=== PATIENT | female | born 1950 | race Two or more races ===

== ENCOUNTER 2020-12-13 16:16 | Inpatient (IN) | payer OTHER ==
[~2020-12-13] VITALS: Ht 157.5 cm; Wt 60.8 kg
[2020-12-13 16:57] LABS: Basophils # (auto) 0 10 ^3/uL (0-0.2); Basophils % (auto) 0.6 % (0.0-2.0); Eosinophils # (auto) 0 10 ^3/uL (0-0.8); Eosinophils % (auto) 0.4 % (0.0-7.0); Hematocrit 43.8 % (36.0-46.0); Hemoglobin 14.7 g/dL (12.2-16.2); Lymphocytes # (auto) 1.2 10 ^3/uL (0.4-5.4); Lymphocytes % (auto) 15.8 % (10.0-50.0); Mean Corpuscular Hgb Conc. 33.6 g/dL (32.0-36.0); Mean Corpuscular Volume 86.4 fL (80.0-100.0); Monocytes # (auto) 0.7 10 ^3/uL (0-1.3); Monocytes % (auto) 9.9 % (0.0-12.0); Neutrophils # (auto) 5.4 10 ^3/uL (1.6-8.6); Neutrophils % (auto) 73.3 % (37.0-80.0); Nucleated Red Blood Cells % 0.2 %; Red Blood Cells 5.07 10^6/uL (4.0-5.20); Red Cell Distribution Width 17.3 % (11.8-14.3); White Blood Cell 7.4 10^3/uL (4.4-10.8)
[2020-12-13] MEDS ORDERED: dilTIAZem 25 MG/5 ML VIAL IV ONE ×2 (17:15→19:45)
[2020-12-13 17:16] LABS: Albumin 2.9 g/dL (3.4-5.0); Calcium 8.4 mg/dL (8.5-10.1); Magnesium 1.9 mg/dL (1.6-2.6); Potassium 4.2 mmol/L (3.5-5.1)
[2020-12-13 17:21] LABS: BUN/Creatinine Ratio 23.5; Bilirubin, Total 0.5 mg/dL (0.2-1.0); Total Protein 7.5 g/dL (6.4-8.2)
[2020-12-13 17:48] LABS: Urine Bacteria FEW /hpf (None Seen); Urine Blood Negative /uL (Negative); Urine Hyaline Cast FEW /lpf (0 - 2); Urine Mucus FEW (None Seen); Urine WBC 14 /hpf (0 - 5)
[2020-12-13] MEDS ORDERED: NITROGLYCERIN 0.4 MG SL TAB SL PRN (22:00)
[2020-12-13] MEDS ORDERED: MORPHINE SULF INJ 2 MG/ML SYRINGE 1ML IV PRN (22:00)
[2020-12-13] MEDS ORDERED: ACETAMINOPHEN 325 MG TAB PO PRN (22:00)
[2020-12-13] MEDS ORDERED: DOCUSATE SOD 100 MG CAP PO PRN (22:00)
[2020-12-13] MEDS ORDERED: cloNIDine HCL 0.1 MG TAB PO PRN (22:00)
[2020-12-13] MEDS ORDERED: HYDROcodone-ACET 5/325MG TAB PO PRN (22:00)
[2020-12-13] MEDS ORDERED: ONDANSETRON HCL 4 MG/2 ML VIAL IV PRN (22:00)
[2020-12-13] MEDS ORDERED: cefTRIAXone 1GM/50ML D5W 50 ML IV ONE (22:30)
[2020-12-13] MEDS: SODIUM CHLOR 0.9% PF (SALINE LOCK) 10ML VIAL/SYR IV SCH (22:48)
[2020-12-13] MEDS: CARVEDILOL 12.5 MG TAB PO SCH (22:49)
[2020-12-13] MEDS: AMIODARONE HCL 200 MG TAB PO SCH (22:49)
[2020-12-13] MEDS: ASCORBIC ACID 500 MG TAB PO SCH (22:50)
[2020-12-13] MEDS: APIXABAN 5 MG TAB PO SCH (22:50)
[2020-12-13] MEDS: ATORVASTATIN 20 MG TAB PO SCH (22:50)
[2020-12-14] VITALS (9 sets, daily range): BP systolic 99–144; BP diastolic 49–95
[2020-12-14] MEDS ORDERED: APIX5TAB PO (00:54)
[2020-12-14] MEDS ORDERED: FURO1TAB31 PO (00:54)
[2020-12-14] MEDS ORDERED: AMIO200T33 PO (00:54)
[2020-12-14] MEDS ORDERED: ATOR20TA50 PO (00:54)
[2020-12-14] MEDS ORDERED: METO-158 PO (00:54)
[2020-12-14] MEDS: SODIUM CHLOR 0.9% PF (SALINE LOCK) 10ML VIAL/SYR IV SCH ×3 (05:46→22:21)
[2020-12-14 08:26] LABS: Basophils # (auto) 0 10 ^3/uL (0-0.2); Basophils % (auto) 0.7 % (0.0-2.0); Eosinophils # (auto) 0 10 ^3/uL (0-0.8); Eosinophils % (auto) 0.5 % (0.0-7.0); Hemoglobin 13.6 g/dL (12.2-16.2); Mean Corpuscular Hemoglobin 28.6 pg (28.0-32.0); Mean Corpuscular Hgb Conc. 33.3 g/dL (32.0-36.0); Mean Corpuscular Volume 85.9 fL (80.0-100.0); Monocytes # (auto) 0.5 10 ^3/uL (0-1.3); Monocytes % (auto) 8.1 % (0.0-12.0); Neutrophils # (auto) 4.9 10 ^3/uL (1.6-8.6); Neutrophils % (auto) 74.7 % (37.0-80.0); Nucleated Red Blood Cells % 0.1 %; Red Blood Cells 4.77 10^6/uL (4.0-5.20); Red Cell Distribution Width 17.1 % (11.8-14.3); White Blood Cell 6.5 10^3/uL (4.4-10.8)
[2020-12-14 08:44] LABS: Cholesterol 98 mg/dL (< 200); Triglycerides 78 mg/dL (< 150)
[2020-12-14 08:47] LABS: HDL Cholesterol 24 mg/dL (40-59); LDL Cholesterol 64 mg/dL (< 100)
[2020-12-14] MEDS: cefTRIAXone 1GM/50ML D5W 50 ML IV SCH (10:06)
[2020-12-14] MEDS: FUROSEMIDE 40 MG/4 ML VIAL IV SCH (10:06)
[2020-12-14] MEDS: MULTIPLE VITAMIN TAB PO SCH (10:08)
[2020-12-14] MEDS: ASCORBIC ACID 500 MG TAB PO SCH ×2 (10:08→22:24)
[2020-12-14] MEDS: CARVEDILOL 12.5 MG TAB PO SCH ×2 (10:09→22:23)
[2020-12-14] MEDS: ZINC SULFATE 220mg CAP or TAB PO SCH (10:09)
[2020-12-14] MEDS: AMIODARONE HCL 200 MG TAB PO SCH ×2 (10:09→22:23)
[2020-12-14] MEDS: APIXABAN 5 MG TAB PO SCH ×2 (10:09→22:23)
[2020-12-14 12:01] LABS: Potassium 4.6 mmol/L (3.5-5.1)
[2020-12-14 12:19] LABS: Albumin 2.8 g/dL (3.4-5.0); BUN/Creatinine Ratio 23.6; Calcium 8.6 mg/dL (8.5-10.1)
[2020-12-14] MEDS ORDERED: MAGNESIUM SULFATE 1GM/100ML 100 ML IV ONE (12:30)
[2020-12-14 12:50] LABS: Bilirubin, Total 0.5 mg/dL (0.2-1.0); Total Protein 6.9 g/dL (6.4-8.2)
[2020-12-14] MEDS: ATORVASTATIN 20 MG TAB PO SCH (22:24)
[2020-12-15 05:00] VITALS: BP 111/63
[2020-12-15] MEDS: SODIUM CHLOR 0.9% PF (SALINE LOCK) 10ML VIAL/SYR IV SCH ×3 (05:46→22:59)
[2020-12-15 09:00] VITALS: BP 109/91
[2020-12-15] MEDS: AMIODARONE HCL 200 MG TAB PO SCH ×2 (09:24→23:00)
[2020-12-15] MEDS: APIXABAN 5 MG TAB PO SCH ×2 (09:24→23:01)
[2020-12-15] MEDS: ASCORBIC ACID 500 MG TAB PO SCH ×2 (09:24→23:02)
[2020-12-15] MEDS: CARVEDILOL 12.5 MG TAB PO SCH ×2 (09:25→23:01)
[2020-12-15] MEDS: ZINC SULFATE 220mg CAP or TAB PO SCH (09:25)
[2020-12-15] MEDS: FUROSEMIDE 40 MG/4 ML VIAL IV SCH (09:25)
[2020-12-15] MEDS: MULTIPLE VITAMIN TAB PO SCH (09:25)
[2020-12-15] MEDS: cefTRIAXone 1GM/50ML D5W 50 ML IV SCH (09:26)
[2020-12-15] MEDS ORDERED: TEMAZEPAM 15 MG CAP PO PRN (12:15)
[2020-12-15 13:00] VITALS: BP 124/65
[2020-12-15 16:49] VITALS: BP 124/89
[2020-12-15 22:00] VITALS: BP 118/83
[2020-12-15] MEDS: ATORVASTATIN 20 MG TAB PO SCH (23:01)
[2020-12-16 05:43] VITALS: BP 119/64
[2020-12-16] MEDS: SODIUM CHLOR 0.9% PF (SALINE LOCK) 10ML VIAL/SYR IV SCH ×3 (05:51→21:42)
[2020-12-16 07:09] LABS: Basophils # (auto) 0.1 10 ^3/uL (0-0.2); Basophils % (auto) 0.8 % (0.0-2.0); Eosinophils # (auto) 0.1 10 ^3/uL (0-0.8); Eosinophils % (auto) 0.8 % (0.0-7.0); Hematocrit 38.4 % (36.0-46.0); Hemoglobin 12.8 g/dL (12.2-16.2); Lymphocytes # (auto) 1.1 10 ^3/uL (0.4-5.4); Lymphocytes % (auto) 16.7 % (10.0-50.0); Mean Corpuscular Hemoglobin 28.9 pg (28.0-32.0); Mean Corpuscular Hgb Conc. 33.2 g/dL (32.0-36.0); Monocytes # (auto) 0.6 10 ^3/uL (0-1.3); Monocytes % (auto) 9.3 % (0.0-12.0); Neutrophils # (auto) 4.7 10 ^3/uL (1.6-8.6); Neutrophils % (auto) 72.4 % (37.0-80.0); Nucleated Red Blood Cells % 0.2 %; Red Blood Cells 4.41 10^6/uL (4.0-5.20); Red Cell Distribution Width 17.1 % (11.8-14.3); White Blood Cell 6.5 10^3/uL (4.4-10.8)
[2020-12-16 07:31] LABS: BUN/Creatinine Ratio 23.2; Calcium 7.8 mg/dL (8.5-10.1); Magnesium 2.1 mg/dL (1.6-2.6); Potassium 3.5 mmol/L (3.5-5.1)
[2020-12-16 08:00] VITALS: BP 118/83
[2020-12-16 09:00] VITALS: BP 104/65
[2020-12-16] MEDS: cefTRIAXone 1GM/50ML D5W 50 ML IV SCH (09:58)
[2020-12-16] MEDS: FUROSEMIDE 40 MG/4 ML VIAL IV SCH (09:58)
[2020-12-16] MEDS: AMIODARONE HCL 200 MG TAB PO SCH ×2 (09:59→21:46)
[2020-12-16] MEDS: ZINC SULFATE 220mg CAP or TAB PO SCH (09:59)
[2020-12-16] MEDS: CARVEDILOL 12.5 MG TAB PO SCH ×2 (10:00→21:46)
[2020-12-16] MEDS: APIXABAN 5 MG TAB PO SCH ×2 (10:01→21:45)
[2020-12-16] MEDS: ASCORBIC ACID 500 MG TAB PO SCH ×2 (10:01→21:45)
[2020-12-16] MEDS: MULTIPLE VITAMIN TAB PO SCH (10:01)
[2020-12-16 13:00] VITALS: BP 96/56
[2020-12-16 17:00] VITALS: BP 122/78
[2020-12-16] MEDS: ATORVASTATIN 20 MG TAB PO SCH (21:45)
[2020-12-16 22:00] VITALS: BP 130/93
[2020-12-17 05:00] VITALS: BP 105/65
[2020-12-17] MEDS: SODIUM CHLOR 0.9% PF (SALINE LOCK) 10ML VIAL/SYR IV SCH ×3 (05:37→22:38)
[2020-12-17 08:47] VITALS: BP 129/65
[2020-12-17] MEDS: cefTRIAXone 1GM/50ML D5W 50 ML IV SCH (09:13)
[2020-12-17] MEDS: ZINC SULFATE 220mg CAP or TAB PO SCH (09:13)
[2020-12-17] MEDS: FUROSEMIDE 40 MG/4 ML VIAL IV SCH (09:13)
[2020-12-17] MEDS: AMIODARONE HCL 200 MG TAB PO SCH ×2 (09:14→22:38)
[2020-12-17] MEDS: CARVEDILOL 12.5 MG TAB PO SCH ×2 (09:14→22:38)
[2020-12-17] MEDS: MULTIPLE VITAMIN TAB PO SCH (09:15)
[2020-12-17] MEDS: ASCORBIC ACID 500 MG TAB PO SCH ×2 (09:15→22:39)
[2020-12-17] MEDS: APIXABAN 5 MG TAB PO SCH ×2 (09:15→22:38)
[2020-12-17 13:00] VITALS: BP 124/67
[2020-12-17 17:13] VITALS: BP 115/63
[2020-12-17 20:00] VITALS: BP 109/83
[2020-12-17 22:00] VITALS: BP 109/83
[2020-12-17] MEDS: ATORVASTATIN 20 MG TAB PO SCH (22:39)
[2020-12-18 05:00] VITALS: BP 135/89
[2020-12-18] MEDS: SODIUM CHLOR 0.9% PF (SALINE LOCK) 10ML VIAL/SYR IV SCH (05:48)
[2020-12-18 06:14] LABS: BUN/Creatinine Ratio 23.3; Calcium 8.1 mg/dL (8.5-10.1)
[2020-12-18 09:00] VITALS: BP 113/77
[2020-12-18] MEDS ORDERED: POTASSIUM CHL 20 Meq TABLET PO ONE (09:15)
[2020-12-18] MEDS: cefTRIAXone 1GM/50ML D5W 50 ML IV SCH (09:43)
[2020-12-18] MEDS: FUROSEMIDE 40 MG/4 ML VIAL IV SCH (09:43)
[2020-12-18] MEDS: AMIODARONE HCL 200 MG TAB PO SCH (09:44)
[2020-12-18] MEDS: CARVEDILOL 12.5 MG TAB PO SCH (09:44)
[2020-12-18] MEDS: APIXABAN 5 MG TAB PO SCH (09:44)
[2020-12-18] MEDS: MULTIPLE VITAMIN TAB PO SCH (09:44)
[2020-12-18] MEDS: ZINC SULFATE 220mg CAP or TAB PO SCH (09:44)
[2020-12-18] MEDS: ASCORBIC ACID 500 MG TAB PO SCH (09:44)
[2020-12-18 12:51] VITALS: BP 104/61
[2020-12-18 12:55] VITALS: BP 104/61
== END 2020-12-18 16:00 | disposition home health service (06) | DRG 280 ==
LOC: ER 16:16 → EDBD 16:16 → TELE 21:52 → TELE-WESTW 23:13
PROVIDERS: ADMIT Nurse Practitioner Family; ATTEND Internal Medicine Geriatric Medicine
DX: I13.0 Hypertensive heart and chronic kidney disease with heart failure and stage 1 through stage 4 chronic kidney disease, or unspecified chronic kidney disease (principal); I21.4 Non-ST elevation (NSTEMI) myocardial infarction; I50.43 Acute on chronic combined systolic (congestive) and diastolic (congestive) heart failure; N39.0 Urinary tract infection, site not specified; I48.91 Unspecified atrial fibrillation; F15.10 Other stimulant abuse, uncomplicated; Z20.822 Contact with and (suspected) exposure to COVID-19; N18.9 Chronic kidney disease, unspecified; F17.210 Nicotine dependence, cigarettes, uncomplicated; J44.9 Chronic obstructive pulmonary disease, unspecified; Z80.8 Family history of malignant neoplasm of other organs or systems; Z82.49 Family history of ischemic heart disease and other diseases of the circulatory system; Z90.49 Acquired absence of other specified parts of digestive tract
CPT/HCPCS: 36415; 71045; 80048; 80053; 80061; 81001; 83036; 83735; 83880; 84443; 84484; 85025; 85379; 87081; 87086; 87426; 93005; 93306; 96365; 96375; 96376; 97116; 97163; 99291; G0378; J0696

== ENCOUNTER 2021-01-08 10:29 | Inpatient (IN) | payer OTHER ==
[~2021-01-08] VITALS: Ht 157.5 cm; Wt 60.7 kg
[~2021-01-08 10:29] MED LIST: AMIO200T33 PO; APIX5TAB PO; ATOR20TA50 PO; FURO1TAB31 PO; METO-158 PO
[2021-01-08] MEDS ORDERED: FUROSEMIDE 40 MG/4 ML VIAL IV ONE (10:45)
[2021-01-08 13:06] LABS: Basophils # (auto) 0.1 10 ^3/uL (0-0.2); Basophils % (auto) 1.1 % (0.0-2.0); Eosinophils # (auto) 0 10 ^3/uL (0-0.8); Eosinophils % (auto) 0.4 % (0.0-7.0); Hematocrit 42.3 % (36.0-46.0); Hemoglobin 14.3 g/dL (12.2-16.2); Lymphocytes # (auto) 1.4 10 ^3/uL (0.4-5.4); Lymphocytes % (auto) 15.3 % (10.0-50.0); Mean Corpuscular Hemoglobin 28.4 pg (28.0-32.0); Mean Corpuscular Hgb Conc. 33.7 g/dL (32.0-36.0); Mean Corpuscular Volume 84.2 fL (80.0-100.0); Monocytes # (auto) 0.8 10 ^3/uL (0-1.3); Monocytes % (auto) 9.1 % (0.0-12.0); Neutrophils # (auto) 6.8 10 ^3/uL (1.6-8.6); Neutrophils % (auto) 74.1 % (37.0-80.0); Red Blood Cells 5.03 10^6/uL (4.0-5.20); Red Cell Distribution Width 16.7 % (11.8-14.3); White Blood Cell 9.1 10^3/uL (4.4-10.8)
[2021-01-08 13:31] LABS: Albumin 3.2 g/dL (3.4-5.0); Calcium 9.1 mg/dL (8.5-10.1); Potassium 4.5 mmol/L (3.5-5.1)
[2021-01-08 13:37] LABS: BUN/Creatinine Ratio 26.7; Bilirubin, Total 0.5 mg/dL (0.2-1.0); Total Protein 8.3 g/dL (6.4-8.2)
[2021-01-08] MEDS ORDERED: ACETAMINOPHEN 500 MG TAB PO PRN (15:00)
[2021-01-08] MEDS ORDERED: NITROGLYCERIN 0.4 MG SL TAB SL PRN (15:00)
[2021-01-08] MEDS ORDERED: HYDROcodone-ACET 5/325MG TAB PO PRN (15:00)
[2021-01-08] MEDS ORDERED: ONDANSETRON HCL 4 MG/2 ML VIAL IV PRN (15:00)
[2021-01-08] MEDS ORDERED: MORPHINE SULFATE INJECTION 2 MG/ML SYRG IV PRN ×2 (15:00)
[2021-01-08 20:00] VITALS: BP 158/101
[2021-01-08] MEDS: METOPROLOL TARTRATE 50 MG TAB PO SCH (22:22)
[2021-01-08] MEDS: APIXABAN 5 MG TAB PO SCH (22:22)
[2021-01-08] MEDS: AMIODARONE HCL 200 MG TAB PO SCH (22:22)
[2021-01-09 05:20] VITALS: BP 133/81
[2021-01-09 06:35] LABS: Basophils # (auto) 0.1 10 ^3/uL (0-0.2); Basophils % (auto) 1.1 % (0.0-2.0); Eosinophils # (auto) 0.1 10 ^3/uL (0-0.8); Eosinophils % (auto) 1.8 % (0.0-7.0); Hematocrit 40.3 % (36.0-46.0); Hemoglobin 13.1 g/dL (12.2-16.2); Lymphocytes # (auto) 1.5 10 ^3/uL (0.4-5.4); Lymphocytes % (auto) 19.7 % (10.0-50.0); Mean Corpuscular Hemoglobin 27.5 pg (28.0-32.0); Mean Corpuscular Hgb Conc. 32.5 g/dL (32.0-36.0); Mean Corpuscular Volume 84.7 fL (80.0-100.0); Monocytes # (auto) 0.8 10 ^3/uL (0-1.3); Monocytes % (auto) 10.5 % (0.0-12.0); Neutrophils % (auto) 66.9 % (37.0-80.0); Nucleated Red Blood Cells % 0.1 %; Red Blood Cells 4.76 10^6/uL (4.0-5.20); Red Cell Distribution Width 17.3 % (11.8-14.3); White Blood Cell 7.5 10^3/uL (4.4-10.8)
[2021-01-09 06:59] LABS: Calcium 8.7 mg/dL (8.5-10.1); Potassium 3.9 mmol/L (3.5-5.1)
[2021-01-09 07:05] LABS: Albumin 2.9 g/dL (3.4-5.0); Bilirubin, Total 0.6 mg/dL (0.2-1.0); Total Protein 7.7 g/dL (6.4-8.2)
[2021-01-09 09:00] VITALS: BP 144/77
[2021-01-09] MEDS ORDERED: FUROSEMIDE 20 MG/2 ML VIAL IV SCH (10:00)
[2021-01-09] MEDS: METOPROLOL TARTRATE 50 MG TAB PO SCH ×2 (10:45→21:23)
[2021-01-09] MEDS: APIXABAN 5 MG TAB PO SCH ×2 (10:45→21:24)
[2021-01-09] MEDS: FUROSEMIDE 20 MG/2 ML VIAL IV SCH ×2 (10:45→17:35)
[2021-01-09] MEDS: AMIODARONE HCL 200 MG TAB PO SCH ×2 (10:45→21:24)
[2021-01-09] MEDS: ATORVASTATIN 20 MG TAB PO SCH (10:45)
[2021-01-09 13:00] VITALS: BP 151/121
[2021-01-09 17:00] VITALS: BP 148/76
[2021-01-09 22:00] VITALS: BP 127/77
[2021-01-10 05:00] VITALS: BP 153/88
[2021-01-10 05:46] LABS: Basophils # (auto) 0.1 10 ^3/uL (0-0.2); Basophils % (auto) 1.2 % (0.0-2.0); Eosinophils # (auto) 0.1 10 ^3/uL (0-0.8); Eosinophils % (auto) 1.7 % (0.0-7.0); Hematocrit 40.2 % (36.0-46.0); Hemoglobin 13.2 g/dL (12.2-16.2); Lymphocytes # (auto) 1.6 10 ^3/uL (0.4-5.4); Lymphocytes % (auto) 23.3 % (10.0-50.0); Mean Corpuscular Hemoglobin 27.9 pg (28.0-32.0); Mean Corpuscular Hgb Conc. 32.9 g/dL (32.0-36.0); Monocytes # (auto) 0.8 10 ^3/uL (0-1.3); Monocytes % (auto) 12.4 % (0.0-12.0); Neutrophils # (auto) 4.1 10 ^3/uL (1.6-8.6); Neutrophils % (auto) 61.4 % (37.0-80.0); Nucleated Red Blood Cells % 0.1 %; Red Blood Cells 4.73 10^6/uL (4.0-5.20); Red Cell Distribution Width 16.9 % (11.8-14.3); White Blood Cell 6.7 10^3/uL (4.4-10.8)
[2021-01-10 05:55] LABS: BUN/Creatinine Ratio 26.5; Potassium 3.8 mmol/L (3.5-5.1)
[2021-01-10 05:56] LABS: Calcium 9.2 mg/dL (8.5-10.1); Magnesium 2.3 mg/dL (1.6-2.6)
[2021-01-10] MEDS: FUROSEMIDE 20 MG/2 ML VIAL IV SCH (07:36)
[2021-01-10 09:00] VITALS: BP 144/99
[2021-01-10] MEDS: APIXABAN 5 MG TAB PO SCH (09:04)
[2021-01-10] MEDS: AMIODARONE HCL 200 MG TAB PO SCH (09:04)
[2021-01-10] MEDS: METOPROLOL TARTRATE 50 MG TAB PO SCH (09:05)
[2021-01-10] MEDS: ATORVASTATIN 20 MG TAB PO SCH (09:05)
[2021-01-10 10:55] LABS: Urine Bacteria FEW /hpf (None Seen); Urine Blood Negative /uL (Negative); Urine Hyaline Cast FEW /lpf (0 - 2); Urine Specific Gravity 1.007 (1.001-1.035); Urine WBC <1 /hpf (0 - 5)
[2021-01-10 11:12] LABS: Alcohol, Urine < 3.0 mg/dL (0-10); Amphetamine Screen, Urine NEGATIVE (NEGATIVE); Barbiturate Scree,Urine NEGATIVE (NEGATIVE); Benzodiazephine Screen, Urine NEGATIVE (NEGATIVE); Cannabinoid Screen, Urine NEGATIVE (NEGATIVE); Cocaine Screen, Urine NEGATIVE (NEGATIVE); Opiate Scree,Urine NEGATIVE (NEGATIVE); Phencyclidine Screen, Urine NEGATIVE (NEGATIVE)
[2021-01-10 11:53] VITALS: BP 144/99
[2021-01-10 12:50] VITALS: BP 156/113
== END 2021-01-10 14:01 | disposition home health service (06) | DRG 291 ==
LOC: EDBD → ER 10:29 → TELE 14:54 → TELE-WESTW 21:05
PROVIDERS: ADMIT Nurse Practitioner Acute Care; ATTEND Internal Medicine Geriatric Medicine
DX: I13.0 Hypertensive heart and chronic kidney disease with heart failure and stage 1 through stage 4 chronic kidney disease, or unspecified chronic kidney disease (principal); I50.43 Acute on chronic combined systolic (congestive) and diastolic (congestive) heart failure; D68.59 Other primary thrombophilia; I48.20 Chronic atrial fibrillation, unspecified; E78.5 Hyperlipidemia, unspecified; F17.210 Nicotine dependence, cigarettes, uncomplicated; N18.9 Chronic kidney disease, unspecified; Z20.822 Contact with and (suspected) exposure to COVID-19; Z79.01 Long term (current) use of anticoagulants; Z79.899 Other long term (current) drug therapy; Z80.8 Family history of malignant neoplasm of other organs or systems; Z82.49 Family history of ischemic heart disease and other diseases of the circulatory system; Z91.14 Patient's other noncompliance with medication regimen; Z90.49 Acquired absence of other specified parts of digestive tract
CPT/HCPCS: 36415; 71045; 80048; 80053; 80307; 81001; 83735; 83880; 84484; 85025; 87081; 87426; 93005; 96374; G0378

== ENCOUNTER 2021-02-28 20:26 | Inpatient (IN) | payer OTHER ==
[~2021-02-28] VITALS: Ht 144.8 cm; Wt 61.4 kg
[2021-02-28 21:33] LABS: Basophils # (auto) 0.2 10 ^3/uL (0-0.2); Basophils % (auto) 2.2 % (0.0-2.0); Eosinophils # (auto) 0.1 10 ^3/uL (0-0.8); Eosinophils % (auto) 1.2 % (0.0-7.0); Hematocrit 46.4 % (36.0-46.0); Hemoglobin 15.2 g/dL (12.2-16.2); Lymphocytes # (auto) 0.8 10 ^3/uL (0.4-5.4); Mean Corpuscular Hgb Conc. 32.7 g/dL (32.0-36.0); Mean Corpuscular Volume 85.8 fL (80.0-100.0); Monocytes # (auto) 0.5 10 ^3/uL (0-1.3); Monocytes % (auto) 6.1 % (0.0-12.0); Neutrophils # (auto) 6.4 10 ^3/uL (1.6-8.6); Neutrophils % (auto) 80.5 % (37.0-80.0); Nucleated Red Blood Cells % 0.1 %; Red Blood Cells 5.41 10^6/uL (4.0-5.20); Red Cell Distribution Width 19.8 % (11.8-14.3); White Blood Cell 7.9 10^3/uL (4.4-10.8)
[2021-02-28 21:51] LABS: Lactic Acid w/Reflex 3.9 mmol/L (0.4-2.0)
[2021-02-28 21:55] LABS: Albumin 3.4 g/dL (3.4-5.0); BUN/Creatinine Ratio 21.6; Calcium 9.2 mg/dL (8.5-10.1); Magnesium 2.3 mg/dL (1.6-2.6); Potassium 4.8 mmol/L (3.5-5.1)
[2021-02-28 22:02] LABS: Bilirubin, Total 1.8 mg/dL (0.2-1.0); Total Protein 8.6 g/dL (6.4-8.2)
[2021-02-28] MEDS ORDERED: FUROSEMIDE 40 MG/4 ML VIAL IV ONE (22:15)
[2021-03-01 00:34] LABS: Urine Bacteria NONE SEEN /hpf (None Seen); Urine Blood Negative /uL (Negative); Urine Hyaline Cast FEW /lpf (0 - 2); Urine Mucus FEW (None Seen); Urine Specific Gravity 1.027 (1.001-1.035); Urine WBC 5 /hpf (0 - 5)
[2021-03-01] MEDS ORDERED: MORPHINE SULFATE INJECTION 2 MG/ML SYRG IV PRN (00:45)
[2021-03-01] MEDS ORDERED: MORPHINE SULFATE 4 MG/ML SYR/VIAL IV PRN (00:45)
[2021-03-01] MEDS ORDERED: ACETAMINOPHEN 325 MG TAB PO PRN (00:45)
[2021-03-01] MEDS ORDERED: ONDANSETRON HCL 4 MG/2 ML VIAL IV PRN (00:45)
[2021-03-01] MEDS ORDERED: NITROGLYCERIN 0.4 MG SL TAB SL PRN (00:45)
[2021-03-01] MEDS ORDERED: dilTIAZem 25 MG/5 ML VIAL IV ONE (00:45)
[2021-03-01] MEDS ORDERED: DOCUSATE SOD 100 MG CAP PO PRN (00:45)
[2021-03-01] MEDS ORDERED: HYDROcodone-ACET 5/325MG TAB PO PRN (00:45)
[2021-03-01] MEDS ORDERED: CARVEDILOL 12.5 MG TAB PO ONE (04:15)
[2021-03-01] MEDS ORDERED: ALBUTEROL SULF HFA 90MCG INH 200DOSE IN SCH (06:00)
[2021-03-01] MEDS: SODIUM CHLOR 0.9% PF (SALINE LOCK) 10ML VIAL/SYR IV SCH ×3 (06:36→23:39)
[2021-03-01 06:51] VITALS: BP 149/83
[2021-03-01] MEDS ORDERED: INFLUENZA QUAD 2020-2021 0.5 ML SYRG IM ONE (07:15)
[2021-03-01] MEDS ORDERED: PNEUMOCOCCAL VACC POLYS 25 MCG/0.5 ML VIAL IM ONE (07:15)
[2021-03-01 07:18] LABS: Basophils # (auto) 0.1 10 ^3/uL (0-0.2); Basophils % (auto) 0.7 % (0.0-2.0); Eosinophils # (auto) 0 10 ^3/uL (0-0.8); Eosinophils % (auto) 0.1 % (0.0-7.0); Hematocrit 42.9 % (36.0-46.0); Lymphocytes # (auto) 1.6 10 ^3/uL (0.4-5.4); Mean Corpuscular Hemoglobin 28.2 pg (28.0-32.0); Mean Corpuscular Hgb Conc. 32.7 g/dL (32.0-36.0); Mean Corpuscular Volume 86.1 fL (80.0-100.0); Monocytes # (auto) 0.7 10 ^3/uL (0-1.3); Monocytes % (auto) 10.3 % (0.0-12.0); Neutrophils # (auto) 4.7 10 ^3/uL (1.6-8.6); Neutrophils % (auto) 65.9 % (37.0-80.0); Nucleated Red Blood Cells % 0.2 %; Red Blood Cells 4.98 10^6/uL (4.0-5.20); Red Cell Distribution Width 19.1 % (11.8-14.3); White Blood Cell 7.1 10^3/uL (4.4-10.8)
[2021-03-01 07:41] LABS: Chloride 110 mmol/L (98-107); Potassium 4.2 mmol/L (3.5-5.1); Sodium 140 mmol/L (136-145)
[2021-03-01 07:49] LABS: Albumin 2.9 g/dL (3.4-5.0); Anion Gap 12 (5-15); BUN/Creatinine Ratio 20.8; Blood Urea Nitrogen 30 mg/dL (7-18); Carbon Dioxide 18 mmol/L (21-32); GFR African American 46 mL/min; GFR Non-African American 38 mL/min; Glucose 123 mg/dL (74-106)
[2021-03-01 07:55] LABS: Alanine Aminotransferase 69 U/L (13-56); Alkaline Phosphatase 237 U/L (45-117); Aspartate Aminotransferase 73 U/L (15-37); Bilirubin, Total 1.1 mg/dL (0.2-1.0); Total Protein 7.9 g/dL (6.4-8.2)
[2021-03-01 09:00] VITALS: BP 177/93
[2021-03-01] MEDS: FUROSEMIDE 40 MG/4 ML VIAL IV SCH (09:15)
[2021-03-01] MEDS: cefTRIAXone 1GM/50ML D5W 50 ML IV SCH (09:15)
[2021-03-01] MEDS: ZINC SULFATE 220mg CAP or TAB PO SCH (09:15)
[2021-03-01] MEDS: AMIODARONE HCL 200 MG TAB PO SCH ×2 (09:16→23:40)
[2021-03-01] MEDS: APIXABAN 5 MG TAB PO SCH ×2 (09:16→23:40)
[2021-03-01] MEDS: MULTIPLE VITAMIN TAB PO SCH (09:16)
[2021-03-01] MEDS: ASCORBIC ACID 500 MG TAB PO SCH ×2 (09:17→23:40)
[2021-03-01] MEDS ORDERED: CARVEDILOL 12.5 MG TAB PO SCH (10:00)
[2021-03-01 13:00] VITALS: BP 143/94
[2021-03-01] MEDS ORDERED: hydrALAZINE HCL 20 MG/ML VL IV PRN (15:00)
[2021-03-01 17:00] VITALS: BP 136/74
[2021-03-01] MEDS ORDERED: METOPROLOL TARTRATE 50 MG TAB PO ONE (18:45)
[2021-03-01 22:00] VITALS: BP 134/74
[2021-03-02 05:00] VITALS: BP 152/79
[2021-03-02] MEDS: SODIUM CHLOR 0.9% PF (SALINE LOCK) 10ML VIAL/SYR IV SCH ×3 (05:46→22:01)
[2021-03-02 06:21] LABS: Basophils # (auto) 0.1 10 ^3/uL (0-0.2); Basophils % (auto) 1.3 % (0.0-2.0); Eosinophils # (auto) 0.1 10 ^3/uL (0-0.8); Eosinophils % (auto) 1.2 % (0.0-7.0); Hematocrit 42.4 % (36.0-46.0); Hemoglobin 13.7 g/dL (12.2-16.2); Lymphocytes # (auto) 1.6 10 ^3/uL (0.4-5.4); Lymphocytes % (auto) 25.6 % (10.0-50.0); Mean Corpuscular Hemoglobin 27.9 pg (28.0-32.0); Mean Corpuscular Hgb Conc. 32.2 g/dL (32.0-36.0); Mean Corpuscular Volume 86.4 fL (80.0-100.0); Monocytes # (auto) 0.8 10 ^3/uL (0-1.3); Monocytes % (auto) 12.8 % (0.0-12.0); Neutrophils # (auto) 3.8 10 ^3/uL (1.6-8.6); Neutrophils % (auto) 59.1 % (37.0-80.0); Nucleated Red Blood Cells % 0.1 %; Red Blood Cells 4.91 10^6/uL (4.0-5.20); Red Cell Distribution Width 19.6 % (11.8-14.3); White Blood Cell 6.4 10^3/uL (4.4-10.8)
[2021-03-02 06:35] LABS: Albumin 2.8 g/dL (3.4-5.0); Potassium 3.2 mmol/L (3.5-5.1)
[2021-03-02 06:41] LABS: BUN/Creatinine Ratio 27.7; Bilirubin, Total 0.6 mg/dL (0.2-1.0); Magnesium 2.2 mg/dL (1.6-2.6); Total Protein 7.1 g/dL (6.4-8.2)
[2021-03-02 09:07] VITALS: BP 159/105
[2021-03-02] MEDS: AMIODARONE HCL 200 MG TAB PO SCH ×2 (10:27→22:01)
[2021-03-02] MEDS: APIXABAN 5 MG TAB PO SCH ×2 (10:27→22:01)
[2021-03-02] MEDS: cefTRIAXone 1GM/50ML D5W 50 ML IV SCH (10:27)
[2021-03-02] MEDS: ZINC SULFATE 220mg CAP or TAB PO SCH (10:27)
[2021-03-02] MEDS: FUROSEMIDE 40 MG/4 ML VIAL IV SCH (10:27)
[2021-03-02] MEDS: MULTIPLE VITAMIN TAB PO SCH (10:28)
[2021-03-02] MEDS: ASCORBIC ACID 500 MG TAB PO SCH ×2 (10:28→22:01)
[2021-03-02] MEDS: METOPROLOL TARTRATE 50 MG TAB PO SCH ×2 (10:28→22:00)
[2021-03-02] MEDS ORDERED: POTASSIUM CHL 20 Meq TABLET PO ONE (11:00)
[2021-03-02] MEDS ORDERED: VANCOMYCIN PER PHARMACY 0 MG IV SCH (11:00)
[2021-03-02] MEDS ORDERED: VANCOMYCIN 1GM/250ML 250 ML IV ONE (11:15)
[2021-03-02 13:05] VITALS: BP 154/107
[2021-03-02 17:00] VITALS: BP 144/108
[2021-03-02 22:00] VITALS: BP 145/90
[2021-03-03 05:00] VITALS: BP 134/73
[2021-03-03 05:43] LABS: BUN/Creatinine Ratio 23.2; Calcium 8.7 mg/dL (8.5-10.1); Potassium 3.9 mmol/L (3.5-5.1)
[2021-03-03 05:55] LABS: Basophils # (auto) 0.1 10 ^3/uL (0-0.2); Basophils % (auto) 1.1 % (0.0-2.0); Eosinophils # (auto) 0.1 10 ^3/uL (0-0.8); Eosinophils % (auto) 1.3 % (0.0-7.0); Hematocrit 41.3 % (36.0-46.0); Hemoglobin 13.6 g/dL (12.2-16.2); Lymphocytes # (auto) 1.8 10 ^3/uL (0.4-5.4); Lymphocytes % (auto) 28.8 % (10.0-50.0); Mean Corpuscular Hemoglobin 28.2 pg (28.0-32.0); Mean Corpuscular Volume 85.4 fL (80.0-100.0); Monocytes # (auto) 0.9 10 ^3/uL (0-1.3); Monocytes % (auto) 14.6 % (0.0-12.0); Neutrophils # (auto) 3.3 10 ^3/uL (1.6-8.6); Neutrophils % (auto) 54.2 % (37.0-80.0); Nucleated Red Blood Cells % 0.3 %; Red Blood Cells 4.83 10^6/uL (4.0-5.20); Red Cell Distribution Width 19.4 % (11.8-14.3); White Blood Cell 6.2 10^3/uL (4.4-10.8)
[2021-03-03] MEDS: SODIUM CHLOR 0.9% PF (SALINE LOCK) 10ML VIAL/SYR IV SCH ×3 (05:56→22:41)
[2021-03-03 09:00] VITALS: BP 155/85
[2021-03-03] MEDS: FUROSEMIDE 40 MG/4 ML VIAL IV SCH (10:18)
[2021-03-03] MEDS: ZINC SULFATE 220mg CAP or TAB PO SCH (10:18)
[2021-03-03] MEDS: cefTRIAXone 1GM/50ML D5W 50 ML IV SCH (10:18)
[2021-03-03] MEDS: AMIODARONE HCL 200 MG TAB PO SCH ×2 (10:18→22:41)
[2021-03-03] MEDS: METOPROLOL TARTRATE 50 MG TAB PO SCH ×2 (10:19→22:42)
[2021-03-03] MEDS: APIXABAN 5 MG TAB PO SCH ×2 (10:19→22:42)
[2021-03-03] MEDS: MULTIPLE VITAMIN TAB PO SCH (10:20)
[2021-03-03] MEDS: ASCORBIC ACID 500 MG TAB PO SCH ×2 (10:20→22:42)
[2021-03-03 13:00] VITALS: BP 144/91
[2021-03-03] MEDS ORDERED: VANCOMYCIN 1GM/250ML 250 ML IV ONE (13:00)
[2021-03-03 17:00] VITALS: BP 145/95
[2021-03-03 22:00] VITALS: BP 190/90
[2021-03-04 05:00] VITALS: BP 147/98
[2021-03-04] MEDS: SODIUM CHLOR 0.9% PF (SALINE LOCK) 10ML VIAL/SYR IV SCH ×3 (05:39→22:01)
[2021-03-04 06:28] LABS: BUN/Creatinine Ratio 24.8; Calcium 8.9 mg/dL (8.5-10.1); Potassium 3.7 mmol/L (3.5-5.1)
[2021-03-04 09:00] VITALS: BP 163/93
[2021-03-04] MEDS ORDERED: LIDOCAINE VISCOUS 2% 15ML UD MT ONE (09:15)
[2021-03-04] MEDS ORDERED: fentaNYL CITRATE 100 MCG/2 ML VL IV ONE (09:15)
[2021-03-04] MEDS ORDERED: MIDAZOLAM HCL 2MG/2ML 2ml VIAL (1mg/ml) IV ONE (09:15)
[2021-03-04] MEDS ORDERED: diphenhdrAMINE HCL 50 MG/1 ML VL IV ONE (09:15)
[2021-03-04] MEDS ORDERED: METOPROLOL TARTRATE 1MG/1ML-5ML VIAL IV ONE ×2 (10:29)
[2021-03-04] MEDS: ZINC SULFATE 220mg CAP or TAB PO SCH (12:19)
[2021-03-04] MEDS: APIXABAN 5 MG TAB PO SCH ×2 (12:19→22:02)
[2021-03-04] MEDS: AMIODARONE HCL 200 MG TAB PO SCH ×2 (12:19→22:01)
[2021-03-04] MEDS: FUROSEMIDE 40 MG/4 ML VIAL IV SCH (12:19)
[2021-03-04] MEDS: MULTIPLE VITAMIN TAB PO SCH (12:20)
[2021-03-04] MEDS: ASCORBIC ACID 500 MG TAB PO SCH ×2 (12:20→22:52)
[2021-03-04] MEDS: METOPROLOL TARTRATE 50 MG TAB PO SCH ×2 (12:20→22:52)
[2021-03-04] MEDS ORDERED: amLODIPine BESYLATE 5 MG TAB PO ONE (12:30)
[2021-03-04 13:00] VITALS: BP 132/89
[2021-03-04 17:00] VITALS: BP 129/87
[2021-03-04 22:00] VITALS: BP 151/94
[2021-03-05 06:00] VITALS: BP 151/96
[2021-03-05] MEDS: SODIUM CHLOR 0.9% PF (SALINE LOCK) 10ML VIAL/SYR IV SCH (06:38)
[2021-03-05 09:00] VITALS: BP 131/76
[2021-03-05] MEDS ORDERED: amLODIPine BESYLATE 5 MG TAB PO SCH (10:00)
[2021-03-05] MEDS ORDERED: hydrALAZINE HCL 25 MG TAB PO SCH ×2 (10:00)
[2021-03-05] MEDS: FUROSEMIDE 40 MG/4 ML VIAL IV SCH (10:18)
[2021-03-05] MEDS: AMIODARONE HCL 200 MG TAB PO SCH (10:19)
[2021-03-05] MEDS: ZINC SULFATE 220mg CAP or TAB PO SCH (10:19)
[2021-03-05] MEDS: APIXABAN 5 MG TAB PO SCH (10:20)
[2021-03-05] MEDS: METOPROLOL TARTRATE 50 MG TAB PO SCH (10:28)
[2021-03-05] MEDS: MULTIPLE VITAMIN TAB PO SCH (10:29)
[2021-03-05] MEDS: ASCORBIC ACID 500 MG TAB PO SCH (10:29)
== END 2021-03-05 13:27 | disposition home or self-care (01) | DRG 309 ==
LOC: EDBD 20:26 → EDUNIT# 20:26 → EDBD 20:27 → ER 20:27 → TELE 03-01 00:41 → TELE-WESTW 03-01 05:50
PROVIDERS: ADMIT Nurse Practitioner Family; ATTEND Internal Medicine Geriatric Medicine
PROC: 05HC33Z Insertion of Infusion Device into Left Basilic Vein, Percutaneous Approach (ICD-10-PCS; 2021-02-28)
PROC: B54NZZA Ultrasonography of Left Upper Extremity Veins, Guidance (ICD-10-PCS; 2021-02-28)
PROC: B246ZZ4 Ultrasonography of Right and Left Heart, Transesophageal (ICD-10-PCS; principal; 2021-03-04)
DX: I48.91 Unspecified atrial fibrillation (principal); I50.22 Chronic systolic (congestive) heart failure; E87.2 Acidosis; D68.9 Coagulation defect, unspecified; N17.9 Acute kidney failure, unspecified; I13.0 Hypertensive heart and chronic kidney disease with heart failure and stage 1 through stage 4 chronic kidney disease, or unspecified chronic kidney disease; I08.1 Rheumatic disorders of both mitral and tricuspid valves; E78.5 Hyperlipidemia, unspecified; E87.6 Hypokalemia; F17.210 Nicotine dependence, cigarettes, uncomplicated; N18.32 Chronic kidney disease, stage 3b; Z20.822 Contact with and (suspected) exposure to COVID-19; R74.01 Elevation of levels of liver transaminase levels; R79.89 Other specified abnormal findings of blood chemistry; Z91.041 Radiographic dye allergy status; Z90.49 Acquired absence of other specified parts of digestive tract; Z80.8 Family history of malignant neoplasm of other organs or systems; Z82.49 Family history of ischemic heart disease and other diseases of the circulatory system; Z91.14 Patient's other noncompliance with medication regimen
CPT/HCPCS: 36415; 71045; 78582; 80048; 80053; 80202; 81001; 82728; 83036; 83605; 83735; 83880; 84484; 85025; 85379; 86141; 86850; 86900; 86901; 87040; 87077; 87186; 87426; 93005; 93312; 96374; 96375; 97163; 99152; G0378; J0696; J2250